=== PATIENT | female | born 1980 | race African-American/Black ===

== ENCOUNTER 2016-06-15 18:16 | Emergency (ER) | payer OTHER ==
[~2016-06-15] VITALS: Ht 160 cm; Wt 95.3 kg
[~2016-06-15 18:16] MED LIST: BACTRIM DS TAB1 EACH PO; CIPRO500 MG PO; DARVOCET-N 1001 EACH PO; DIFLUCAN150 MG PO; DIFLUCAN200 MG PO; GARCINIA CAMBO1 EACH PO; MACROBID 100 M100 M1 PO; MACROBID 100 M100 M2 PO; NOHOMEMEDICATIONS; NORCO 5-325 TA1 EACH PO; NORCO 7.5-3251 EACH PO; PYRIDIUM100 MG PO; PYRIDIUM200 MG PO; REGLAN 10 MG TA10 MG PO; ZOFRAN ODT4 MG PO; ZPAK PO; [UNRECOGNIZED DRUG - OTHER]
[2016-06-15] MEDS ORDERED: NOHOMEMEDICATIONS (18:42)
[2016-06-15] MEDS ORDERED: FLEXERIL PO (20:23)
[2016-06-15] MEDS ORDERED: MOBIC15 MG PO (20:23)
[2016-06-15 20:27] VITALS: BP 130/82
== END 2016-06-15 20:31 | disposition home or self-care (01) ==
LOC: ER 18:16
DX: S16.1XXA Strain of muscle, fascia and tendon at neck level, initial encounter (principal); S39.012A Strain of muscle, fascia and tendon of lower back, initial encounter; Z90.49 Acquired absence of other specified parts of digestive tract; Z98.84 Bariatric surgery status; V43.92XA Unspecified car occupant injured in collision with other type car in traffic accident, initial encounter; Y93.I9 Activity, other involving external motion; Y92.488 Other paved roadways as the place of occurrence of the external cause; Y99.9 Unspecified external cause status

== ENCOUNTER 2016-12-23 10:48 | Emergency (ER) | payer OTHER ==
[~2016-12-23] VITALS: Ht 160 cm; Wt 97.5 kg
[~2016-12-23 10:48] MED LIST changes: +FLEXERIL PO; +MOBIC15 MG PO
[2016-12-23 11:06] LABS: URINE BILIRUBIN NEGATIVE (Negative); URINE BLOOD NEGATIVE (Negative); URINE COLOR YELLOW; URINE GLUCOSE-RANDOM* NEGATIVE (Negative); URINE KETONES NEGATIVE (Negative); URINE NITRITE NEGATIVE (Negative); URINE PROTEIN (DIPSTICK) TRACE (Negative); URINE SPECIFIC GRAVITY 1.025 (1.003-1.035)
[2016-12-23] MEDS ORDERED: DIFLUCAN150 MG PO (11:32)
[2016-12-23 11:42] VITALS: BP 140/90
[2016-12-26 00:06] LABS: CHLAMYDIA TRACHOMATIS-PCR Negative (Negative); NEISSERIA GONORRHEA-PCR Negative (Negative)
== END 2016-12-23 11:42 | disposition home or self-care (01) ==
LOC: ER 10:48
PROVIDERS: Physician Assistant
DX: N89.8 Other specified noninflammatory disorders of vagina (principal); Z98.890 Other specified postprocedural states

== ENCOUNTER 2017-05-09 20:03 | Emergency (ER) | payer BC, OTHER ==
[~2017-05-09] VITALS: Ht 160 cm; Wt 94.8 kg
[2017-05-09 21:32] LABS: URINE BILIRUBIN NEGATIVE (Negative); URINE BLOOD NEGATIVE (Negative); URINE CLARITY CLEAR; URINE COLOR YELLOW; URINE GLUCOSE-RANDOM* NEGATIVE (Negative); URINE KETONES NEGATIVE (Negative); URINE LEUKOCYTES NEGATIVE (Negative); URINE NITRITE NEGATIVE (Negative); URINE PROTEIN (DIPSTICK) NEGATIVE (Negative)
[2017-05-09 22:18] LABS: HEMATOCRIT 36.8 % (37.0-47.0); HEMOGLOBIN 12.7 gm/dL (12.0-15.0); MCHC 34.4 g/dL (28.0-37.0); MCV 92.9 fL (80.0-100.0); PLATELET COUNT 312 thou/uL (150-400); RBC 3.96 mil/uL (4.20-5.00); RDW 13.2 % (10.5-14.5); WBC 2.9 thou/uL (4.0-11.0)
[2017-05-09 22:25] LABS: CALCIUM 8.4 mg/dL (8.5-10.1); CREATININE 0.9 mg/dL (0.6-1.0); POTASSIUM 3.2 mmol/L (3.5-5.1)
[2017-05-09 22:31] LABS: ALBUMIN 3.2 g/dL (3.4-5.0); TOTAL BILIRUBIN 0.9 mg/dL (<0.1-1.0); TOTAL PROTEIN 6.7 g/dL (6.4-8.2)
[2017-05-09 23:24] LABS: ABSOLUTE NEUTROPHILS 1.6 thou/uL (1.4-8.2)
[2017-05-10] MEDS ORDERED: ONDANSETRON HCL4 M2 PO (00:54)
== END 2017-05-10 01:03 | disposition home or self-care (01) ==
LOC: ER 20:03
PROVIDERS: Physician Assistant
DX: R10.84 Generalized abdominal pain (principal); R11.0 Nausea; M79.1 Myalgia; E87.6 Hypokalemia

== ENCOUNTER → 2017-09-25 | Outpatient (CLI) | payer OTHER ==
[~2017-09-25] MED LIST changes: +ONDANSETRON HCL4 M2 PO
== END ==
LOC: RAD 16:46
DX: Z01.818 Encounter for other preprocedural examination (principal); R07.89 Other chest pain

== ENCOUNTER 2017-12-30 21:08 | Emergency (ER) | payer OTHER ==
[~2017-12-30] VITALS: Ht 160 cm; Wt 95.3 kg
[2017-12-30] MEDS ORDERED: VALIUM5 MG PO (21:21)
[2017-12-30 21:34] LABS: URINE BILIRUBIN NEGATIVE (Negative); URINE BLOOD 3+ (Negative); URINE CLARITY CLOUDY; URINE COLOR RED; URINE GLUCOSE-RANDOM* NEGATIVE (Negative); URINE KETONES TRACE (Negative); URINE NITRITE-REFLEX NEGATIVE (Negative); URINE PROTEIN (DIPSTICK) 2+ (Negative); URINE SPECIFIC GRAVITY >= 1.030 (1.005-1.035)
[2017-12-30 21:38] LABS: URINE LEUKOCYTES-REFLEX 1+ (Negative)
[2017-12-30 21:42] LABS: URINE RBC >20 Many /HPF (0-2)
[2017-12-30 21:43] LABS: CASTS None Seen /LPF (None Seen); MUCUS 0-3 Light strn/LPF (None Seen); SQUAMOUS 0-3 Few /LPF (0-3)
[2017-12-30 21:44] LABS: CRYSTALS None Seen /LPF (None Seen); TRANSITIONAL EPITHEL CELL 0-3 Few /LPF (None Seen)
[2017-12-30] MEDS ORDERED: ULTRAM 50MG TAB50 MG PO (21:47)
[2017-12-30] MEDS ORDERED: PYRIDIUM200 MG PO (21:47)
[2017-12-30] MEDS ORDERED: BACTRIM DS TAB1 EACH PO (21:47)
[2017-12-30] MEDS ORDERED: IBUPROFEN 600600 M1 PO (21:47)
[2017-12-30 22:16] VITALS: BP 146/70
== END 2017-12-30 22:18 | disposition home or self-care (01) ==
LOC: ER 21:08
PROVIDERS: Emergency Medicine
DX: N30.90 Cystitis, unspecified without hematuria (principal); Z90.49 Acquired absence of other specified parts of digestive tract

== ENCOUNTER → 2018-01-11 | Outpatient (CLI) | payer OTHER ==
[~2018-01-11] MED LIST changes: +IBUPROFEN 600600 M1 PO; +ULTRAM 50MG TAB50 MG PO; +VALIUM5 MG PO
== END ==
LOC: RAD 11:47
DX: M17.0 Bilateral primary osteoarthritis of knee (principal)

== ENCOUNTER 2018-03-29 19:25 | Emergency (ER) | payer OTHER ==
[~2018-03-29] VITALS: Ht 160 cm; Wt 99.8 kg
[2018-03-29] MEDS ORDERED: LOMAIRA8 MG PO (19:33)
[2018-03-29] MEDS ORDERED: BUTALB-APAP-CA1 EACH PO (21:51)
[2018-03-29 22:08] VITALS: BP 127/71
== END 2018-03-29 22:10 | disposition home or self-care (01) ==
LOC: ER 19:25
DX: R51 Headache (principal); Z90.49 Acquired absence of other specified parts of digestive tract

== ENCOUNTER 2018-07-29 14:37 | Emergency (ER) | payer OTHER ==
[~2018-07-29] VITALS: Ht 160 cm; Wt 99.8 kg
[~2018-07-29 14:37] MED LIST changes: +BUTALB-APAP-CA1 EACH PO; +LOMAIRA8 MG PO
[2018-07-29 15:38] LABS: HEMATOCRIT 38.5 % (37.0-47.0); HEMOGLOBIN 12.9 gm/dL (12.0-15.0); MCH 30.9 pg (26.0-34.0); MCHC 33.6 g/dL (28.0-37.0); MCV 91.9 fL (80.0-100.0); RBC 4.19 mil/uL (4.20-5.00); RDW 12.9 % (10.5-14.5); WBC 4.6 thou/uL (4.0-11.0)
[2018-07-29 15:47] LABS: ANION GAP 12 mmol/L (7-16); BUN 12 mg/dL (7-18); CALCIUM 9.2 mg/dL (8.5-10.1); CHLORIDE 101 mmol/L (98-107); CO2 26 mmol/L (21-32); CREATININE 0.9 mg/dL (0.6-1.0); GLUCOSE 110 mg/dL (74-106); POTASSIUM 3.7 mmol/L (3.5-5.1); SODIUM 139 mmol/L (136-145)
[2018-07-29 15:56] LABS: ALBUMIN 4.2 g/dL (3.4-5.0); SGOT 28 U/L (15-37); SGPT 23 U/L (30-65); TOTAL BILIRUBIN 0.5 mg/dL (<0.1-1.0); TOTAL PROTEIN 8.5 g/dL (6.4-8.2); TROPONIN-I <0.06 ng/mL (<0.06)
[2018-07-29] MEDS ORDERED: CONTRAVE ER 8-1 EACH PO (16:17)
[2018-07-29 17:47] LABS: BE(vivo) -1.7 mmol/L (-2 to +3); HCO3 21.7 mmol/L (22.0-26.0); PCO2 32.8 mmHg (35.0-45.0); pH 7.439 (7.360-7.450); sO2 97.4 % (92.0-98.0)
[2018-07-29] MEDS ORDERED: ATIVAN0.5 MG PO (19:30)
[2018-07-29 20:04] VITALS: BP 151/92
--- NOTE | 2018-07-30 07:59 | EKG ---
[address] [address] ELECTROCARDIOGRAM REPORT Name: CHIN SKINNER [id number] ������������������ Admission: 07/29/18 ������������������ Attend Phys: Discharge: 07/29/18 ������������������ Date of : 84 Report #: [id number] ����������������������������������������������������������������� [id number] THIS REPORT FOR: //name// [facility] ED Test Date: 2018-07-29 Test Time: 15:28:45 Pat Name: CHIN SKINNER Department: Room: Gender: F Warp Yarn Sorter: KELINMia : 1980 Requested By: Natalie Meehan Order Number: [id number] MD: Kenney Watts Measurements Intervals [place] Rate: 89 P: 19 CT: 162 QRS: 23 QRSD: 110 T: 38 QT: 370 QTc: 451 Interpretive Statements Sinus rhythm Compared to ECG 05/25/2016 09:35:40 Right ventricular hypertrophy now present Electronically Signed On 07-30-2018 7:59:02 CDT by Kenney Watts [email or web address] ��������������������������������������������� <ELECTRONICALLY SIGNED> ���������������������������������������� By: Kenney Watts MD ��������������������������������������������� 07/30/18 0759 1528 1528 MD DONNA Yousif
== END 2018-07-29 20:06 | disposition home or self-care (01) ==
LOC: ER 14:37
PROVIDERS: Physician Assistant
DX: R07.89 Other chest pain (principal); R06.02 Shortness of breath; K21.9 Gastro-esophageal reflux disease without esophagitis; E66.9 Obesity, unspecified; Z68.39 Body mass index [BMI] 39.0-39.9, adult; Z90.49 Acquired absence of other specified parts of digestive tract

== ENCOUNTER → 2018-11-26 | Outpatient (CLI) | payer OTHER ==
[~2018-11-26] MED LIST changes: +ATIVAN0.5 MG PO; +CONTRAVE ER 8-1 EACH PO; +CYCLOBENZAPRINE5 MG PO; +METRONIDAZOLE500 M4 PO; +NORCO 5-325 TA1 EAC1 PO
== END ==
LOC: ULTRA 11:09 → CAT 11:09
DX: K44.9 Diaphragmatic hernia without obstruction or gangrene (principal); Z90.49 Acquired absence of other specified parts of digestive tract

== ENCOUNTER 2018-11-28 14:49 | Inpatient (IN) | payer OTHER ==
[~2018-11-28] VITALS: Ht 160 cm; Wt 104.3 kg
--- NOTE | ~2018-11-28 | H ---
[facility] [place] [address] HISTORY AND PHYSICAL Name: TAMERA SKINNERCHIN SANTO Room #: 418-P ADM IN M.R.#: [id number] Admission: 11/28/18 ������������������ Attend Phys: Vicki Hall MD Discharge: ������������������ Date of : 84 Report #: [id number] THIS REPORT FOR: //name// CC: Jenny Hall DATE OF SERVICE: 11/28/2018 ADMISSION HISTORY AND PHYSICAL EXAMINATION PRIMARY CARE PHYSICIAN: Dr. De La Fuente. CHIEF COMPLAINT: Increased drainage with purulent drainage noted from umbilical incision postoperatively. HISTORY OF PRESENT ILLNESS: The patient is a very pleasant 38-year-old female who recently had a laparoscopic tubal ligation on 11/13/[address] Esquivel, software development analyst and the patient started noticing 4 days after the surgery having some minimal drainage from the umbilical incision and subsequently the patient informs me that she also noticed some night sweats. She called her primary care physician and she was seen by her software development analyst and was started on Bactrim-DS 1 tablet p.o. b.i.d. and continued and he opened up and drained; however, the medical records are not available, but the culture grew out different bacteria and so Dr. Esquivel had arranged for outpatient appointment with Infectious Disease with Dr. Maximo Sutherland as well as the patient was advised to take amoxicillin instead of Bactrim. The patient informs me that Sunday she got her amoxicillin prescription filled and she had been changing the dressing; however, the dressing is showing more and more purulent drainage and her abdominal discomfort was just getting little worse as well and with continued night sweats and symptoms getting worse, she was concerned and so decided to come to the Emergency Room for further evaluation after she had called her software development analyst who then checked outpatient to the ER provider. The patient is concerned that she has had a tummy tuck procedure in the past and she just does not want that to be messed up with this infection and she denies any fever or shaking chills. Besides night sweats, she has not had any other systemic symptoms. The patient informs me that at times, she has felt nauseous, but no emesis. No epigastric pain. She has not had any hematochezia or melena either. Her review of systems is also negative for any dysuria, hematuria or vaginal discharge or vaginal bleeding. PAST MEDICAL HISTORY: Significant for: 1. Obesity, which was treated by gastric sleeve approximately 3-4 years ago. 2. Cholecystitis and cholelithiasis, which was then treated with cholecystectomy. 3. History of lipoma, which was resected in 2006. [address] [address] HISTORY AND PHYSICAL Name: CHIN SALGUERO SANTO Room #: 418-P ADM IN M.R.#: [id number] Admission: 11/28/18 ������������������ Attend Phys: Vicki Hall MD Discharge: ������������������ Date of : 84 Report #: [id number] PAST SURGICAL HISTORY: Please see above. ALLERGIES: The patient has no known drug allergies. CURRENT MEDICATIONS: Amoxicillin, the antibiotic prescribed by the software development analyst. FAMILY HISTORY: Both parents are healthy and she does not have any family history of diabetes, hypertension or any cancer. REVIEW OF SYSTEMS: A 10-point review of systems was done, please see HPI above. PHYSICAL EXAMINATION: VITAL SIGNS: Temperature 36.6, heart rate 101, respirations 20, blood pressure 138/79, pulse oximeter 98% on room air. GENERAL: Alert and oriented to time, place and person, very pleasant 38-year-old female who appears very comfortable and is in no acute cardiopulmonary distress. HEENT: Normocephalic, atraumatic. Pupils are equally round and reactive to light. Conjunctivae clear. Sclerae nonicteric. Oropharynx clear. Mucous membranes moist. NECK: Supple, no JVD, no lymphadenopathy. HEART: S1, S2 regular. No murmur, no S3, no S4. LUNGS: Clear to auscultation bilaterally without any crackles or wheezes. ABDOMEN: The patient has an opening with a width of 1 cm and drainage noted, purulent drainage. It has been packed with Vaseline gauze. Gauze was replaced by the ER provider and it does not appear to be very soaked. It was changed last night by the patient as per software development analyst recommendation and no induration or fluid collection palpated by clinical exam. No more drainage noted. Very minimal drainage noted when the dressing was changed. The patient has a well-healed scar of a tummy tuck procedure in the lower abdominal area and no tenderness noted in the suprapubic or in both lower quadrants or epigastric area. Normoactive bowel sounds are present. EXTREMITIES: Both lower extremities without any edema or abnormalities noted. Blood cultures and Gram stain have been sent from the ER. CBC with diff and comprehensive metabolic panel have been ordered by the ER provider, but they are still pending. The patient had CT scan of abdomen and pelvis done on 11/26/2018, which indicated surgical changes from sleeve gastrectomy and previous laparoscopic cholecystectomy clips noted and mild stranding in the subcutaneous fat in the anterior abdominal wall at and just below umbilicus with possible mild skin thickening in the lower anterior abdominal wall. Mild soft tissue inflammation noted, but no fluid collection noted. Otherwise, the abdominal CT was unremarkable. The patient does have a small sliding type hiatal hernia noted as well. [facility] [address] [place] [address] HISTORY AND PHYSICAL Name: CHIN SALGUERO Room #: 418-P ADM IN M.R.#: [id number] Admission: 11/28/18 ������������������ Attend Phys: Vicki Hall MD Discharge: ������������������ Date of : 84 Report #: [id number] ASSESSMENT: 1. Abdominal wall cellulitis postoperative after laparoscopic tubal ligation. 2. Obesity. 3. Status post bariatric surgery. 4. Obesity and the patient wishes to be full code. PLAN: 1. The patient will be started on Zosyn and Infectious Disease is being consulted by the Emergency Room provider as per recommendation from the software development analyst and we will wait for the cultures to come back. 2. Followup on the labs, CBC and a comprehensive metabolic panel and lactic acid. However, I believe lactic acid should be normal. The patient has a fairly nontoxic appearance and infection is very localized. No systemic signs noted for sepsis or SIRS and discussed with the patient and we will get the wound care involved as well for the dressing changes and full code order has been written. For GI prophylaxis, we will use Pepcid and for DVT prophylaxis, we will use Lovenox. ��������������������������������������������� ���������������������������������������� By: ��������������������������������������������� 1611 1719 Vicki Hall MD /nt
[~2018-11-28 14:49] MED LIST changes: -CYCLOBENZAPRINE5 MG PO; -METRONIDAZOLE500 M4 PO; -NORCO 5-325 TA1 EAC1 PO
[2018-11-28 14:51] VITALS: BP 138/79
[2018-11-28] MEDS ORDERED: CYCLOBENZAPRINE5 MG PO ×2 (15:28)
--- NOTE | 2018-11-28 15:53 | NUR ---
UNSUCESSFUL IV ATTEMPT, BLOOD SENT, WILL ASK IV TEAM TO OBTAIN GOOD IV FOR ABT THERAPY AND CT CONTRAST.
[2018-11-28 16:13] LABS: ABSOLUTE NEUTROPHILS 2.3 thou/uL (1.4-8.2); EOSINOPHILS 5.2 % (0.0-3.0); HEMATOCRIT 36.4 % (37.0-47.0); HEMOGLOBIN 11.9 gm/dL (12.0-15.0); LYMPHOCYTES 35.5 % (24.0-44.0); MCH 30.5 pg (26.0-34.0); MCHC 32.7 g/dL (28.0-37.0); MCV 93.4 fL (80.0-100.0); MONOCYTES 10.2 % (1.0-8.0); PLATELET COUNT 350 thou/uL (150-400); POLYS 48.1 % (36.0-66.0); RDW 13.3 % (10.5-14.5); WBC 4.9 thou/uL (4.0-11.0)
[2018-11-28 16:21] LABS: CALCIUM 8.9 mg/dL (8.5-10.1); POTASSIUM 4.6 mmol/L (3.5-5.1)
[2018-11-28 16:46] VITALS: BP 126/86
[2018-11-28 16:59] VITALS: BP 141/80
[2018-11-28 17:36] VITALS: BP 131/80
[2018-11-28 19:39] VITALS: BP 130/68
--- NOTE | 2018-11-28 19:56 | NUR ---
PT ADMITTED FROM ER . VS HEIGHT AND WEIGHT CHARTED. AT 1800 THIS NURSE DID ADMISSION HX AND ED STULL INSTALLER TO DO SKIN ASSESSMENT. CONSULTS IN COMPUTER FOR WOUND CARE AND DR SANDERS, DR DOMINGUEZ CALLED AND GAVE DIET ORDER AND SAID COULD FOLLOW HOME MED ORDERS. PT HAS STEADY GAIT TO BATHROOM. PT CONT OF BOWEL AND BLADDER.
--- NOTE | 2018-11-28 20:21 | NUR ---
IV ABT FROM ER FOR 1600 STARTED AT THIS TIME. PT PLEASANT AND COOPERATIVE WITH CARE.
--- NOTE | 2018-11-29 01:59 | NUR ---
ADMISSION ASSESSMENT COMPLETED.PT C/O PAIN ON HED ABD,ORDER NOTED AND CARRIED OUT.WOUND ON HER ABD CLEANED AND COVERED WITH WET TO DRY DRSG.PT UP ADLIB IN ROOM.TOMMY HERE TO SEE PT AT START OF SHIFT.PT RESTING ON HER BED AT THIS TIME.CALL LIGHT WITHIN REACH.
[2018-11-29 05:14] VITALS: BP 130/70
[2018-11-29 05:42] LABS: HEMATOCRIT 32.3 % (37.0-47.0); HEMOGLOBIN 10.8 gm/dL (12.0-15.0); MCHC 33.6 g/dL (28.0-37.0); MCV 92.1 fL (80.0-100.0); RBC 3.5 mil/uL (4.20-5.00); RDW 12.9 % (10.5-14.5); WBC 4.5 thou/uL (4.0-11.0)
[2018-11-29 06:17] LABS: CALCIUM 8.4 mg/dL (8.5-10.1); CREATININE 0.9 mg/dL (0.6-1.0); MAGNESIUM 1.9 mg/dL (1.8-2.4); POTASSIUM 3.9 mmol/L (3.5-5.1)
[2018-11-29 08:13] VITALS: BP 138/79
--- NOTE | 2018-11-29 12:46 | NUR ---
WOUND CONSULT; THE UMBILICAL INSCISION WAS ASSESSED. NO VISUAL S/S OF INFECTION NOTED. THE PATIENT HAS NO ACUTE COMPLAINTS. THE PATIENT IS EATING A FULL LUNCH. SHE SEEMS TO BE IN NO DISTRESS. THE WOUND IS APPROX 1 X 1 X 2 CM WITH SOME UDERMINING AND NO ODOR. RECOMMENDATION; PACK WITH AQUACEL AQ, CHANGE DAILY/PRN DISCUSSED WITH STAFF
--- NOTE | 2018-11-29 16:42 | HC ---
[place] [address] CONSULTATION Name: TAMERA SKINNERCHIN BLANCHARD Room #: 418-P ADM IN M.R.#: [id number] Admission: 11/28/18 ������������������ Attend Phys: Vicki Hall MD Discharge: ������������������ Date of : 84 Report #: [id number] THIS REPORT FOR: //name// CC: Jenny Hall DATE OF SERVICE: 11/29/2018 ADJUNCT INSTRUCTOR IN ECONOMICS CONSULTATION REASON FOR CONSULTATION: Post-laparoscopic umbilical wound infection. HISTORY OF PRESENT ILLNESS: This is a 38-year-old who was admitted on 11/28/2018 for further evaluation of an umbilical wound infection following a laparoscopic bilateral salpingectomy with ablation of endometriosis and lysis of adhesions. Surgery was performed on 11/14/[address] Bud Esquivel. Apparently, there was some difficulty entering a trocar through the umbilicus due to her previous abdominoplasty, but the procedure was performed with no evidence of any injury to intra-abdominal organs. She did have bilateral salpingectomy with treatment of uterine endometriosis with some lysis of adhesions. Her postoperative course was slightly complicated by a periumbilical wound infection. She was initially seen and treated by Dr. Esquivel with an incision and drainage of the umbilical area with culture that was positive Enterococcus and Acinetobacter. She initially was started on Bactrim and then was subsequently added Augmentin. She was seen for regular wound care and was doing well, but apparently was having some increased discomfort on 11/28/2018 and was admitted for further evaluation. Dr. Esquivel is out of town and asked me to see her in his absence. She since admission has remained afebrile. Her white count was 4.9 on admission with hemoglobin of 11.9. She has had some slight discomfort through the night, but it seems to be tolerated with pain medication. She has had no additional drainage from the wound according to the nurse who cared for her through the night. She denies any nausea, vomiting, no diarrhea, no dysuria. She did have both ultrasound and a CT scan with an area on 11/26/2018. There was no evidence of any intra-abdominal abscess and there was some slight soft tissue stranding in the abdominal wall at the level of the umbilicus consistent with inflammation, but no evidence of any abscess. CT and ultrasound also agreed on no evidence of any intra-abdominal or abdominal wall abscess. At this time, she was admitted primarily for evaluation of her wound by both wound care and Infectious Disease as well as pain management. On exam today, her abdomen was found to be soft, nondistended. Wound was added. There was a small open area, which had been performed by Dr. Esquivel. There was no evidence of any cellulitis, no drainage identified. No evidence of any bleeding. IMPRESSION: At this time was a superficial periumbilical wound infection post-laparoscopic procedure with lysis of adhesions, treatment of endometriosis [address] [address] CONSULTATION Name: CHIN SALGUERO Room #: 418-P ADM IN M.R.#: [id number] Admission: 11/28/18 ������������������ Attend Phys: Vicki Hall MD Discharge: ������������������ Date of : 84 Report #: [id number] and salpingectomy. She has been adequately treated with antibiotics, but still is somewhat symptomatic. PLAN: At this time, we will await the input of both Infectious Disease and Wound Care for further treatment protocol. She will continue to have management of her pain. She will follow back up as an outpatient with Dr. Esquivel upon release. ��������������������������������������������� <ELECTRONICALLY SIGNED> ���������������������������������������� By: Rupert Shen MD ��������������������������������������������� 11/29/18 1642 0755 0824 Rupert Shen MD /nt
[2018-11-29 19:25] VITALS: BP 155/66
[2018-11-30 04:30] VITALS: BP 114/64
[2018-11-30 05:26] LABS: HEMATOCRIT 34.3 % (37.0-47.0); HEMOGLOBIN 11.2 gm/dL (12.0-15.0); MCH 30.6 pg (26.0-34.0); MCHC 32.8 g/dL (28.0-37.0); MCV 93.4 fL (80.0-100.0); RBC 3.67 mil/uL (4.20-5.00); RDW 12.8 % (10.5-14.5); WBC 4.3 thou/uL (4.0-11.0)
--- NOTE | 2018-11-30 05:28 | NUR ---
ASSESSMENT COMPLETED. PT IS UP AD JOSAFAT. ABDOMINAL DRSG CHANGE PROVIDED AT SHIFT CHANGE.AFEBRILE.PAIN FAIRLY CONTROLLED WITH MORPHINE AND OXYCODONE. NO COMPLAINS THIS FAR. CALL LIGHT WITHIN REACH.
[2018-11-30 06:14] LABS: MAGNESIUM 2.1 mg/dL (1.8-2.4); PHOSPHORUS 3.9 mg/dL (2.5-4.9); POTASSIUM 4.7 mmol/L (3.5-5.1)
[2018-11-30 07:30] VITALS: BP 116/65
--- NOTE | 2018-11-30 12:13 | HC ---
[facility] [place] [address] CONSULTATION Name: TAMERA SKINNERCHIN BLANCHARD Room #: 418-P ADM IN M.R.#: [id number] Admission: 11/28/18 ������������������ Attend Phys: Vicki Hall MD Discharge: ������������������ Date of : 84 Report #: [id number] THIS REPORT FOR: //name// CC: Jenny Hall DATE OF SERVICE: 11/28/2018 INFECTIOUS DISEASES CONSULTATION Evaluate surgical site infection. HISTORY OF PRESENT ILLNESS: The patient was a 38-year-old with underlying obesity who underwent laparoscopic tubal ligation on 11/14/2018. It was noted that this was a laparoscopic procedure. The patient had previously had abdominoplasty. Entry into the abdomen was more complicated due to this fact. It was noted that there were some small bowel adhesions, but they were easily taken down without issue. Procedure for tubal ligation went without complication. She was discharged home and over the subsequent week, she had noticed increased tenderness to the periumbilical incision with increased swelling. She was having low-grade fevers and occasional mild chill and night sweats. She had small amount of drainage from her incision. She was evaluated in the outpatient clinic where the incision was opened by Dr. Esquivel and cultured. This was packed and he noted that he was unable to find any deep fluid pocket. Placed empirically on Bactrim followed by the addition of Augmentin. She continued to have moderate amount of drainage from the incision wound. Still was running low-grade fever and having sweats. Cultures returned showing Enterobacter and Acinetobacter. Both were susceptible to Bactrim as well Augmentin. I have not seen the formal sensitivity report. Because she was still having abdominal discomfort with no improvement after nearly a week of oral antibiotic therapy, it was elected to admit for further intravenous antibiotics. The patient has had no nausea, vomiting or diarrhea. No dysuria. No vaginal discharge. PAST MEDICAL HISTORY: Obesity, gastric sleeve, abdominoplasty, cholecystectomy. ALLERGIES: None known. MEDICATIONS: Included Bactrim and amoxicillin. FAMILY HISTORY: Noncontributory. SOCIAL HISTORY: Nonsmoker. No significant alcohol intake. REVIEW OF SYSTEMS: Denies any rash, adenopathy, bleeding disorder, headache or neurologic issues, cardiopulmonary complaints. Full 10-point review negative [address] [address] CONSULTATION Name: TAMERA SKINNERCHIN [facility] Room #: 418-[facility] IN [facility].#: [id number] Admission: 11/28/18 ������������������ Attend Phys: Vicki Hall MD Discharge: ������������������ Date of : 84 Report #: [id number] other than what is described above. PHYSICAL EXAMINATION: VITAL SIGNS: She was afebrile and hemodynamically stable. GENERAL: Alert and cooperative, in no acute distress. She was moderately obese. SKIN: Without rash or decubitus. No palpable adenopathy. HEENT: Eyes without scleral icterus. Mouth without mucositis. NECK: Supple, with no thyromegaly or mass. LUNGS: Clear. HEART: Regular; without murmur, gallop or rub. ABDOMEN: Soft, obese with a periumbilical incisional wound. This was evaluated noting serosanguineous drainage. There was no purulence. There was no evidence of fascial dehiscence. She did have some surrounding induration and tenderness. No definite mass. There is no guarding or rebound. No hepatosplenomegaly. GENITAL AND RECTAL: Not performed. There is a lower transverse abdominal healed scar from her previous abdominoplasty. EXTREMITIES: Without clubbing, cyanosis or edema. Strength in the upper and lower extremities was normal. Sensation intact. Cranial nerves are normal. Mood was normal. BACK: Nontender. LABORATORY DATA: Hemoglobin 11.9, WBC 4.9, platelet count 350,000. Sodium 140, potassium 4.6, bicarbonate 25, creatinine 1. CT scan of the abdomen and pelvis from 05/26/2018 showed no abdominal wall abscess or intraabdominal abscess fluid collection. She had induration surrounding the periumbilical incision. No evidence of pneumonia seen in the lower lung pike. Ultrasound of the pelvis revealed the same findings. IMPRESSION: Postoperative fever due to surgical site infection following laparoscopic tubal ligation. Suspect polymicrobial gram-negative infection of the incision. So far no evidence of bowel perforation identified on imaging. I could appreciate no feculent smell to the wound. There was no feculent material able to be visualized at the base of her incisional wound. RECOMMENDATIONS: We will continue with broad antibiotic coverage including meropenem. We will obtain outpatient culture results to confirm her microbiology. I have discussed with Dr. Esquivel along with nursing staff regarding this treatment approach. If the patient improves over the next 12-24 hours, we will continue with the same program. Otherwise, we will need further imaging to reassess for development of abscess. ��������������������������������������������� <ELECTRONICALLY SIGNED> ���������������������������������������� By: Maximo Sutherland MD ��������������������������������������������� 11/30/18 1213 2359 [id number] Maximo Sutherland MD /nt
[2018-11-30] MEDS ORDERED: CIPRO500 MG PO ×2 (14:35)
[2018-11-30] MEDS ORDERED: METRONIDAZOLE500 M4 PO ×2 (14:35)
--- NOTE | 2018-11-30 15:07 | NUR ---
PT A&OX4, VSS, PAIN IN ABD. PAIN MANAGED WITH MEDICATION. DRESSING CHANGED TODAY AND PHOTO TAKEN, SCANT DRAINAGE NOTED ON PACKING. NO SIGNS OF DISTRESS. AT BEDSIDE. WILL CONTINUE TO MONITOR.
[2018-11-30 15:19] VITALS: BP 116/65
[2018-11-30 16:05] VITALS: BP 161/77
[2018-11-30] MEDS ORDERED: NORCO 5-325 TA1 EAC1 PO ×2 (17:24)
== END 2018-11-30 18:06 | disposition home or self-care (01) | DRG 863 ==
LOC: ER 14:49 → EROBS 17:14 → 4E 17:15
PROVIDERS: Emergency Medicine Emergency Medical Services; ADMIT Internal Medicine
DX: T81.41XA Infection following a procedure, superficial incisional surgical site, initial encounter (principal); L03.311 Cellulitis of abdominal wall; E66.9 Obesity, unspecified; Z68.41 Body mass index [BMI] 40.0-44.9, adult; Z90.49 Acquired absence of other specified parts of digestive tract; Z98.84 Bariatric surgery status; Z98.51 Tubal ligation status; Y84.8 Other medical procedures as the cause of abnormal reaction of the patient, or of later complication, without mention of misadventure at the time of the procedure
CPT/HCPCS: 10084

== ENCOUNTER 2019-04-04 19:50 | Emergency (ER) | payer OTHER ==
[~2019-04-04] VITALS: Ht 160 cm; Wt 106.6 kg
[~2019-04-04 19:50] MED LIST changes: +CYCLOBENZAPRINE5 MG PO; +METRONIDAZOLE500 M4 PO; +NORCO 5-325 TA1 EAC1 PO
[2019-04-04 20:16] LABS: URINE BILIRUBIN NEGATIVE (Negative); URINE BLOOD NEGATIVE (Negative); URINE CLARITY CLEAR; URINE COLOR YELLOW; URINE GLUCOSE-RANDOM* NEGATIVE (Negative); URINE KETONES TRACE (Negative); URINE LEUKOCYTES-REFLEX NEGATIVE (Negative); URINE NITRITE-REFLEX NEGATIVE (Negative); URINE PROTEIN (DIPSTICK) NEGATIVE (Negative); URINE SPECIFIC GRAVITY 1.025 (1.005-1.035); URINE UROBILINOGEN 0.2 E.U./dl (0.2-1.0)
[2019-04-04 20:40] LABS: HEMOGLOBIN 12.1 gm/dL (12.0-15.0); MCH 30.4 pg (26.0-34.0); MCHC 32.8 g/dL (28.0-37.0); MCV 92.7 fL (80.0-100.0); RBC 3.99 mil/uL (4.20-5.00); RDW 13.5 % (10.5-14.5); WBC 5.4 thou/uL (4.0-11.0)
[2019-04-04 20:46] LABS: CALCIUM 9.1 mg/dL (8.5-10.1); CREATININE 0.9 mg/dL (0.6-1.0); POTASSIUM 3.6 mmol/L (3.5-5.1)
[2019-04-04 20:53] LABS: ALBUMIN 3.9 g/dL (3.4-5.0); TOTAL BILIRUBIN 0.5 mg/dL (<0.1-1.0); TOTAL PROTEIN 7.9 g/dL (6.4-8.2)
[2019-04-04] MEDS ORDERED: ZOFRAN ODT4 MG PO (21:06)
[2019-04-04 21:33] VITALS: BP 153/90
== END 2019-04-04 21:27 | disposition home or self-care (01) ==
LOC: ER 19:50
PROVIDERS: Student in an Organized Health Care Education/Training Program
DX: R11.2 Nausea with vomiting, unspecified (principal); Z98.84 Bariatric surgery status; Z90.49 Acquired absence of other specified parts of digestive tract

== ENCOUNTER → 2019-10-28 | Outpatient (CLI) | payer OTHER | LOC: RAD 09:53 | PROVIDERS: ATTEND Nurse Practitioner | DX: S83.102A Unspecified subluxation of left knee, initial encounter (principal); M17.11 Unilateral primary osteoarthritis, right knee; X58.XXXA Exposure to other specified factors, initial encounter; Y93.89 Activity, other specified; Y92.89 Other specified places as the place of occurrence of the external cause; Y99.8 Other external cause status ==

== ENCOUNTER → 2019-11-14 | Outpatient (CLI) | payer OTHER | LOC: LAB 10:20 | PROVIDERS: ATTEND Nurse Practitioner | DX: Z01.812 Encounter for preprocedural laboratory examination (principal); Z20.828 Contact with and (suspected) exposure to other viral communicable diseases ==

== ENCOUNTER 2019-12-02 13:30 | Emergency (ER) | payer OTHER ==
[~2019-12-02] VITALS: Ht 160 cm; Wt 104.3 kg
[2019-12-02 15:01] LABS: HEMATOCRIT 37.6 % (37.0-47.0); HEMOGLOBIN 12.5 gm/dL (12.0-15.0); MCH 30.6 pg (26.0-34.0); MCHC 33.3 g/dL (28.0-37.0); MCV 91.8 fL (80.0-100.0); RBC 4.1 mil/uL (4.20-5.00); RDW 13.2 % (10.5-14.5); WBC 6.2 thou/uL (4.0-11.0)
[2019-12-02 15:01] LABS: URINE BILIRUBIN NEGATIVE (Negative); URINE BLOOD NEGATIVE (Negative); URINE CLARITY CLEAR; URINE COLOR YELLOW; URINE GLUCOSE-RANDOM* NEGATIVE (Negative); URINE KETONES 1+ (Negative); URINE LEUKOCYTES-REFLEX NEGATIVE (Negative); URINE NITRITE-REFLEX NEGATIVE (Negative); URINE PROTEIN (DIPSTICK) NEGATIVE (Negative); URINE SPECIFIC GRAVITY >= 1.030 (1.005-1.035)
[2019-12-02 15:05] LABS: CALCIUM 9.3 mg/dL (8.5-10.1); CREATININE 0.9 mg/dL (0.6-1.0); POTASSIUM 3.7 mmol/L (3.5-5.1)
[2019-12-02 15:11] LABS: TOTAL BILIRUBIN 0.8 mg/dL (0.2-1.0); TOTAL PROTEIN 8.3 g/dL (6.4-8.2)
[2019-12-02] MEDS ORDERED: ZOFRAN ODT4 MG PO (16:43)
[2019-12-02 17:00] VITALS: BP 120/71
== END 2019-12-02 17:00 | disposition home or self-care (01) ==
LOC: ER 13:30
PROVIDERS: Emergency Medicine
DX: R53.1 Weakness (principal); R42 Dizziness and giddiness; R11.10 Vomiting, unspecified; Z90.49 Acquired absence of other specified parts of digestive tract

== ENCOUNTER → 2020-03-24 | Outpatient (CLI) | payer OTHER ==
[2020-03-24 15:11] LABS: ABSOLUTE NEUTROPHILS 3.4 thou/uL (1.4-8.2); BASOPHILS 0.7 % (0.0-2.0); EOSINOPHILS 0.6 % (0.0-3.0); HEMATOCRIT 35.8 % (37.0-47.0); HEMOGLOBIN 11.9 gm/dL (12.0-15.0); LYMPHOCYTES 28.4 % (24.0-44.0); MCH 30.5 pg (26.0-34.0); MCHC 33.2 g/dL (28.0-37.0); MCV 91.9 fL (80.0-100.0); MONOCYTES 7.8 % (1.0-8.0); PLATELET COUNT 378 thou/uL (150-400); POLYS 62.5 % (36.0-66.0); RBC 3.89 mil/uL (4.20-5.00); RDW 13.5 % (10.5-14.5); WBC 5.4 thou/uL (4.0-11.0)
[2020-03-24 15:16] LABS: URINE BILIRUBIN NEGATIVE (Negative); URINE BLOOD NEGATIVE (Negative); URINE CLARITY CLEAR; URINE COLOR YELLOW; URINE GLUCOSE-RANDOM* NEGATIVE (Negative); URINE KETONES NEGATIVE (Negative); URINE LEUKOCYTES NEGATIVE (Negative); URINE NITRITE NEGATIVE (Negative); URINE PROTEIN (DIPSTICK) NEGATIVE (Negative); URINE SPECIFIC GRAVITY 1.025 (1.005-1.035)
[2020-03-24 15:22] LABS: ALBUMIN 3.9 g/dL (3.4-5.0); ANION GAP 11 mmol/L (7-16); BUN 9 mg/dL (7-18); CALCIUM 9.4 mg/dL (8.5-10.1); CHLORIDE 101 mmol/L (98-107); CHOLESTEROL 225 mg/dL (<200); CO2 28 mmol/L (21-32); GLUCOSE 92 mg/dL (74-106); HDL CHOLESTEROL 89 mg/dL (>40); LDL CHOLESTEROL 123 mg/dL (<100); POTASSIUM 3.7 mmol/L (3.5-5.1); SGOT 20 U/L (15-37); SGPT 22 U/L (30-65); SODIUM 140 mmol/L (136-145); TC:HDL 2.5 Ratio (Not establshd); TOTAL BILIRUBIN 0.5 mg/dL (0.2-1.0); TOTAL PROTEIN 7.8 g/dL (6.4-8.2); TRIGLYCERIDE 65 mg/dL (<150); VLDL 13 mg/dL (<40)
== END ==
LOC: LAB 14:33
PROVIDERS: ATTEND Nurse Practitioner
DX: Z00.00 Encounter for general adult medical examination without abnormal findings (principal)